=== PATIENT | male | born 1990 | race Hispanic/Latino ===

== ENCOUNTER 2022-06-12 03:37 | Emergency (ER) | payer OTHER ==
[2022-06-12] MEDS ORDERED: Lidocaine 1% (PF) 30 ML VIAL ONE (04:19)
[2022-06-12] MEDS ORDERED: Ondansetron ODT 4 MG TAB ONE (04:28)
[2022-06-12] MEDS ORDERED: Ibuprofen 200 MG TAB ONE (04:28)
[2022-06-12] MEDS ORDERED: Metoclopramide HCl 10 MG TAB ONE (05:35)
== END 2022-06-12 05:30 | disposition home or self-care (01) ==
LOC: NAV ERS 03:37
DX: G44.209 Tension-type headache, unspecified, not intractable (principal)
CPT/HCPCS: 99284; J2001; Q0162